=== PATIENT | male | born 1965 | race Caucasian/White ===

== ENCOUNTER 2016-12-08 23:59 | Inpatient (IN) | payer SELFPAY ==
--- NOTE | ~2016-12-08 | DS ---
Discharge Summary [facility] [address] [facility] [place]. [address] NAME: LIBBY MONZON : 69 STATUS : DIS IN PAT#: [id number] AGE: 50 ADM/REG DATE : 12/09/16 MR#: [id number] REPORT SERV DATE: 12/11/16 DICTATED BY: MARIAM PINA DATE: 12/10/16 REPORT STATUS : Draft TRANSCRIBED BY: MODL DATE: 12/10/16 ADMISSION DATE: 12/09/2016 DISCHARGE DATE: 12/10/2016 Date of the patient left AMA is 12/10/2016. DIAGNOSES ON DISCHARGE: Include the following: Bilateral diabetic foot ulcers in both feet. The patient does have a stage III diabetic foot ulcer in the left foot on the sole of the left foot and the patient also has a stage IV to V diabetic foot ulcer on the ball of the big toe of the right foot including first right metatarsal osteomyelitis. Other diagnoses that are chronic in this patient include: 1. Diabetes mellitus type 2 - insulin requiring with diabetic neuropathy. 2. Active tobacco use, which has probably contributed to the diabetic foot ulcer. 3. Homelessness. 4. History of chronic osteomyelitis in the right great toe and the right first metatarsophalangeal joint. BRIEF HOSPITAL COURSE: The patient is a 50-year-old gentleman who was admitted to the hospital on 12/09/2016 with infected diabetic foot ulcers in both feet. Wound cultures were obtained and the patient was promptly started on antibiotics. X-ray of the foot that was obtained showed that the patient did have osteomyelitis of the right first MTP joint and metatarsal area. The patient was given supportive care with pain control and also wound dressing was done. The patient also underwent bilateral arterial Doppler/ALEXI to assess for circulation in both lower extremities. 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 We consulted Vascular Surgery and also consulted General Surgery for possible wound debridement in this patient while we were trying to get Infectious Disease doctors to consult and suggest the length and the type of antibiotics in this patient. Wound cultures are also pending at this time. As he was talking to one of the surgeons regarding his tobacco use, the patient suddenly got extremely upset and decided to leave against medical advice. I went inside the patient's exam room and tried to talk him into staying and explained to him the risks of him signing out AMA. The patient even refused prescription for antibiotics, he said that he got this, he could take care of himself and was extremely agitated, almost violent, and signed out AMA at this time. The patient did not want or refused a prescription for even antibiotics "I got this, I am an adult, and I can make decisions on my own" and the patient is being signed out AMA. So far the results I have on this patient include the following, CBC on 12/10/2016 shows WBC count of 5, hemoglobin 10.4, hematocrit 32.2, and platelet count is 362. His wound cultures at this time as mentioned above, they just are back, and it does show that GPC to be identified and moderate growth of gram-negative bacilli to be identified at this time. Hence even though we have an approximate idea about what this is growing, the definitive cultures are pending. Discharge Summary [address] [address] NAME: LIBBY MONZON : 69 STATUS : DIS IN PAT#: [id number] AGE: 50 ADM/REG DATE : 12/09/16 MR#: [id number] REPORT SERV DATE: 12/11/16 DICTATED BY: MARIAM PINA DATE: 12/10/16 REPORT STATUS : Draft TRANSCRIBED BY: CALIXTO DATE: 12/10/16 His sedimentation rate has come back elevated at 77. His electrolyte profile shows normal electrolytes, normal BUN and creatinine. Glycohemoglobin or hemoglobin A1c is 7.5, reflecting fairly good control of his diabetes mellitus. So, at this time, he states that he has enough medications and refuses any more antibiotics and has signed out AMA. I have spent about 35 minutes in coordinating discharge care of this patient including face- to-face encounter, talking to the patient and reviewing test results and dictating this summary. DICTATED BY: Edelmira Asher/CALIXTO Mariam Pina M.D. / [id number] CC: Mariam Pina M.D.
--- NOTE | ~2016-12-08 | HP ---
History And Physical [place] [address] [place]. [address] NAME: LIBBY MONZON : 69 STATUS : ADM IN PAT#: [id number] AGE: 50 ADM/REG DATE : 12/09/16 MR#: [id number] REPORT SERV DATE: 12/09/16 DICTATED BY: MORIS BENEDICT DATE: 12/09/16 REPORT STATUS : Draft TRANSCRIBED BY: MODNickolas DATE: 12/09/16 DATE OF ADMISSION: 12/08/2016 POINT OF ENTRY: [facility]. PRIMARY CARE PHYSICIAN: None at this time. CHIEF COMPLAINT: Bilateral foot pain. HISTORY OF PRESENT ILLNESS: Mr. Monzon is a 50-year-old gentleman with a history of non- insulin-dependent diabetes mellitus type 2 with associated diabetic neuropathy as well as prior history of right great toe and 5th toe diabetic foot infections with osteomyelitis, who presents to the emergency department today with reports of week long history of bilateral foot pain and infection. The patient was admitted to the Hospitalist Service in July of this year for right great toe and 5th toe diabetic foot infection with osteomyelitis. He underwent surgical debridement by Dr. Bridges. At that time amputation was recommended, but he declined. The Hospitalist Service arranged for the patient to have a prolonged course of outpatient IV antibiotic infusions with daptomycin with then conversion to oral Zyvox; however, the patient states that shortly after discharge he was arrested and placed in longterm, and was unable to complete the course of antibiotic treatment. The patient states he was recently released from his longterm six days ago. States that upon discharge from longterm his feet were doing well, they had healed up. There was no drainage, skin breakdown, redness or pain. He states that he was at [facility] about four days ago for bilateral foot pain with signs of swelling, redness, and concern for infection. He states that he was there for about two days and claims that he was not given any antibiotics at that time. The patient denies any fevers, night sweats, or chills. He states that his skin breakdown of his feet, the swelling, and redness has continued to worsen over the last few days findings on presentation to the emergency department. Initial evaluation in the emergency department was notable for labs that are unremarkable except for a blood sugar of 258. He has stable vital signs. He was subsequently admitted to the Hospitalist Service for further evaluation and management. REVIEW OF SYSTEMS: Comprehensive review of system otherwise negative unless listed in history of present illness. PREVIOUS MEDICAL HISTORY: 1. Agv-oppydbn-ovqezgosu diabetes mellitus type 2 with diabetic neuropathy. 2. Chronic pain. 3. Active tobacco abuse. 4. Homelessness. 5. History of right great toe and 5th toe diabetic foot infection and osteomyelitis. History And Physical [address] [address] NAME: LIBBY MONZON : 69 STATUS : ADM IN PAT#: [id number] AGE: 50 ADM/REG DATE : 12/09/16 MR#: [id number] REPORT SERV DATE: 12/09/16 DICTATED BY: MORIS BENEDICT DATE: 12/09/16 REPORT STATUS : Draft TRANSCRIBED BY: CALIXTO DATE: 12/09/16 6. History of nephrolithiasis. SURGICAL HISTORY: Surgical debridement of right great toe and 5th toe. ALLERGIES: TO MORPHINE. HOME MEDICATIONS: None. SOCIAL HISTORY: He smokes about a half pack per day. Denies alcohol. Denies illicits. FAMILY MEDICAL HISTORY: Mother with cancer. Extensive family history of coronary artery disease. LABS AND IMAGIN. White count is 7.4, hemoglobin is 10.7, hematocrit is 31.9, and platelets 349. 2. Sodium is 137, potassium is 3.7, chloride is 103, carbon dioxide 28, BUN 15, creatinine 0.93, glucose is 258, calcium is 8.7, protein is 7.0, albumin is 3.1, bilirubin is 0.6, ALT 23, AST 14, and alkaline phosphatase is 86. 3. Plain films of the bilateral feet are pending at the time of dictation. PHYSICAL EXAMINATION: VITAL SIGNS: Temperature is 98.4 degrees Fahrenheit, pulse is 105, respirations 20, saturating 98% on room air, and blood pressure is 119/83. GENERAL: The patient is awake, alert, in no acute distress. Resting comfortably in bed. He is a disheveled and unkempt appearing male. HEENT: Atraumatic and normocephalic. Moist mucous membranes. Pupils are equal, round, reactive to light and accommodation. Extraocular eye movements intact. No scleral icterus. NECK: No jugular venous distention. No carotid bruits. CARDIAC: Regular rate and rhythm. No murmurs or gallops. Normal S1, normal S2. LUNGS: Clear to auscultation bilaterally. No wheezes, rhonchi, or crackles. ABDOMEN: Soft, nontender, and nondistended. Good bowel sounds. No rebound, guarding, or rigidity. EXTREMITIES: Warm. The left lower extremity has some edema and erythema encompassing the forefoot and midfoot region. He has a chronic appearing ulceration on the distal aspect of the left great toe. The right lower extremity also shows some swelling, erythema, and warmth of the forefoot and midfoot region. The patient also has ulceration on the distal aspect of the great toe as well as ulceration with skin breakdown over the metatarsal head region of the right great toe. SKIN: Warm and dry except for noted above. PSYCH: Affect appropriate. NEURO: Alert and oriented x3. Cranial nerves 2 through 12 grossly intact. Speech is normal. Gait not assessed. ASSESSMENT AND PLAN: Mr. Monzon is a 50-year-old gentleman with a history of diabetes with a previous history of right diabetic foot infection, osteomyelitis, who presents to the emergency department today with bilateral foot pain and evidence of infection. History And Physical [address] [address] NAME: LIBBY MONZON : 69 STATUS : ADM IN [facility]#: [id number] AGE: 50 ADM/REG DATE : 12/09/16 MR#: [id number] REPORT SERV DATE: 12/09/16 DICTATED BY: MORIS BENEDICT DATE: 12/09/16 REPORT STATUS : Draft TRANSCRIBED BY: CALIXTO DATE: 12/09/16 PROBLEM LIST: 1. Bilateral lower extremity diabetic foot infection with concern for osteomyelitis. 2. Uhw-ctcsalm-drhusetzt diabetes mellitus type 2. 3. Active tobacco abuse. 4. Medication noncompliance. 5. Homelessness. PLAN: 1. Bilateral lower extremity diabetic foot infection with concern for osteomyelitis. We will admit the patient to the Hospitalist Service. Blood culture already had been obtained. We will try to obtain wound cultures. We will place the patient empirically on broad-spectrum antibiotics of IV vancomycin as well as Zosyn to cover known prior culture data of MSSA as well as Pseudomonas. We will consult Orthopedic Surgery, Dr. Bridges, who has seen the patient in July. Follow up results of plain films. We will defer to Dr. Bridges we will not repeat MRI as indicated at this time, but we will check ESR, CRP for evaluation of possible osteomyelitis. 2. Ytg-tdcvabn-owzcdgoxw diabetes mellitus type 2. The patient's blood sugars are elevated here at 256. Check his hemoglobin A1c. Place him on a level 2 sliding scale. butcher or smallgoods maker consultation. 3. DVT prophylaxis. Lovenox subcu. CODE STATUS: The patient wished to be full code. JCB/MODL Moris Benedict MD / [id number]
[~2016-12-08 23:59] MED LIST: *UNABLE1; ADVIL PO; ALEVE220 MG PO; AUG875 PO; CIP5 PO; GLUCOTROL5 PO; GLUCPH PO; IBU800 PO; NORCO1 TA1 PO; NOVOLOG SC; NOVOLOGMIX; [UNRECOGNIZED DRUG - REMARK]
[2016-12-09 00:21] LABS: BASOPHILS 0.3 %; BASOPHILS ABSOLUTE 0.02 10/3/uL (0.0-0.16); EOSINOPHILS 3.2 %; EOSINOPHILS ABSOLUTE 0.24 10/3/uL (0.0-0.53); ER CBC TAT 0 Hrs 03 Mins; HEMOGLOBIN 10.7 g/dL (13.6-17.8); IMMATURE GRANULOCYTES 0.1 %; IMMATURE GRANULOCYTES ABSOLUTE 0.01 10/3/uL (0.0-0.11); LYMPHOCYTES 14.6 %; LYMPHOCYTES ABSOLUTE 1.08 10/3/uL (0.67-4.30); MEAN CORPUS HGB CONC 33.5 g/dL (32.0-36.0); MEAN CORPUSCULAR HEMOGLOB 30.1 pg (26.0-34.0); MEAN CORPUSCULAR VOLUME 89.9 fL (80-100); MEAN PLATELET VOLUME 8.3 fL (9.2-13.0); MONOCYTES 11.5 %; MONOCYTES ABSOLUTE 0.85 10/3/uL (0.21-1.20); NEUTROPHILS 70.3 %; NEUTROPHILS ABSOLUTE 5.19 10/3/uL (2.02-8.40); PLATELET COUNT 340 10/3/uL (150-400); RBC DISTRIBUTION WIDTH 13.2 % (12.0-16.0); RED CELL COUNT 3.55 10/6/uL (4.7-6.1); WHITE BLOOD CELLS 7.4 10/3/uL (4.5-10.5)
[2016-12-09 00:31] LABS: HEMATOCRIT 31.9 % (40.0-51.0); MANUAL DIFF NO %
[2016-12-09 00:37] LABS: A/G RATIO 0.7 (0.7-1.9); ALBUMIN 3.1 G/DL (3.5-5.0); ALKALINE PHOSPHATASE 86 U/L (45-117); BUN (BLOOD UREA NITROGEN) 15 MG/DL (6-23); CALCIUM, SERUM 8.7 MG/DL (8.5-10.4); CHLORIDE, SERUM 103 MMOL/L (96-112); CO2 (CARBON DIOXIDE) 28 MMOL/L (24-34); CREATININE 0.93 MG/DL (0.70-1.30); GFR AFRICAN AMERICAN 112 ML/MIN (>=60); GFR NON AFRICAN AMERICAN 97 ML/MIN (>=60); GLOBULIN 4.5 G/DL (2.5-4.1); GLUCOSE, SERUM 258 MG/DL (60-99); POTASSIUM, SERUM 3.7 MMOL/L (3.5-5.3); SGOT(AST) 14 U/L (5-40); SGPT(ALT) 23 U/L (5-65); SODIUM, SERUM 137 MMOL/L (135-148); TOTAL BILIRUBIN 0.6 MG/DL (0-1.2); TOTAL PROTEIN 7.6 G/DL (6.0-8.5)
[2016-12-09 05:37] LABS: PROCALCITONIN 0.08 ng/mL (<0.5)
[2016-12-10 06:01] LABS: BUN (BLOOD UREA NITROGEN) 10 MG/DL (6-23); CALCIUM, SERUM 8.2 MG/DL (8.5-10.4); CHLORIDE, SERUM 107 MMOL/L (96-112); CO2 (CARBON DIOXIDE) 28 MMOL/L (24-34); CREATININE 0.79 MG/DL (0.70-1.30); GFR AFRICAN AMERICAN 123 ML/MIN (>=60); GFR NON AFRICAN AMERICAN 106 ML/MIN (>=60); GLUCOSE, SERUM 125 MG/DL (60-99); POTASSIUM, SERUM 4.3 MMOL/L (3.5-5.3); SODIUM, SERUM 138 MMOL/L (135-148)
[2016-12-10 06:53] LABS: BASOPHILS 0.6 %; BASOPHILS ABSOLUTE 0.03 10/3/uL (0.0-0.16); EOSINOPHILS 8.9 %; EOSINOPHILS ABSOLUTE 0.44 10/3/uL (0.0-0.53); HEMATOCRIT 32.2 % (40.0-51.0); HEMOGLOBIN 10.4 g/dL (13.6-17.8); IMMATURE GRANULOCYTES 0.4 %; IMMATURE GRANULOCYTES ABSOLUTE 0.02 10/3/uL (0.0-0.11); LYMPHOCYTES ABSOLUTE 1.94 10/3/uL (0.67-4.30); MANUAL DIFF NO %; MEAN CORPUS HGB CONC 32.3 g/dL (32.0-36.0); MEAN CORPUSCULAR HEMOGLOB 29.6 pg (26.0-34.0); MEAN CORPUSCULAR VOLUME 91.7 fL (80-100); MEAN PLATELET VOLUME 8.5 fL (9.2-13.0); MONOCYTES 9.3 %; MONOCYTES ABSOLUTE 0.46 10/3/uL (0.21-1.20); NEUTROPHILS 41.8 %; NEUTROPHILS ABSOLUTE 2.08 10/3/uL (2.02-8.40); PLATELET COUNT 362 10/3/uL (150-400); RBC DISTRIBUTION WIDTH 13.3 % (12.0-16.0); RED CELL COUNT 3.51 10/6/uL (4.7-6.1)
== END 2016-12-10 13:06 | disposition left against medical advice (07) | DRG 74 ==
LOC: ER 23:59 → 5SO 12-09 02:54
PROVIDERS: Emergency Medicine; Internal Medicine
DX: E11.40 Type 2 diabetes mellitus with diabetic neuropathy, unspecified (principal); E11.65 Type 2 diabetes mellitus with hyperglycemia; M86.8X7 Other osteomyelitis, ankle and foot; G89.29 Other chronic pain; F17.210 Nicotine dependence, cigarettes, uncomplicated; Z59.0 Homelessness; Z87.442 Personal history of urinary calculi; Z98.890 Other specified postprocedural states; Z88.5 Allergy status to narcotic agent; Z91.14 Patient's other noncompliance with medication regimen
CPT/HCPCS: 73630-50; 80048; 80053; 82962; 83036; 84145; 85025; 85652; 86140; 87070; 87077; 87186; 87205; 93923; 99284; A9270-GY; J1170; J2543; J3370

== ENCOUNTER 2016-12-29 23:00 | Emergency (ER) | payer SELFPAY ==
[2016-12-30 00:20] LABS: BASOPHILS 0.4 %; BASOPHILS ABSOLUTE 0.03 10/3/uL (0.0-0.16); EOSINOPHILS 7.6 %; EOSINOPHILS ABSOLUTE 0.53 10/3/uL (0.0-0.53); ER CBC TAT 0 Hrs 05 Mins; HEMATOCRIT 35.2 % (40.0-51.0); HEMOGLOBIN 11.6 g/dL (13.6-17.8); IMMATURE GRANULOCYTES 0.1 %; IMMATURE GRANULOCYTES ABSOLUTE 0.01 10/3/uL (0.0-0.11); LYMPHOCYTES ABSOLUTE 2.37 10/3/uL (0.67-4.30); MEAN CORPUSCULAR HEMOGLOB 29.9 pg (26.0-34.0); MEAN CORPUSCULAR VOLUME 90.7 fL (80-100); MEAN PLATELET VOLUME 8.9 fL (9.2-13.0); MONOCYTES 7.6 %; MONOCYTES ABSOLUTE 0.53 10/3/uL (0.21-1.20); NEUTROPHILS 50.3 %; NEUTROPHILS ABSOLUTE 3.51 10/3/uL (2.02-8.40); PLATELET COUNT 272 10/3/uL (150-400); RBC DISTRIBUTION WIDTH 13.7 % (12.0-16.0); RED CELL COUNT 3.88 10/6/uL (4.7-6.1)
[2016-12-30 00:22] LABS: MANUAL DIFF NO %
[2016-12-30 00:34] LABS: ACETONE NEG
[2016-12-30 00:40] LABS: LACTATE 1.1 MMOL/L (0.3-2.4)
[2016-12-30 00:43] LABS: A/G RATIO 0.9 (0.7-1.9); ALBUMIN 3.4 G/DL (3.5-5.0); ALKALINE PHOSPHATASE 93 U/L (45-117); BUN (BLOOD UREA NITROGEN) 21 MG/DL (6-23); CALCIUM, SERUM 8.5 MG/DL (8.5-10.4); CHLORIDE, SERUM 102 MMOL/L (96-112); CO2 (CARBON DIOXIDE) 30 MMOL/L (24-34); CREATININE 1.25 MG/DL (0.70-1.30); GFR AFRICAN AMERICAN 78 ML/MIN (>=60); GFR NON AFRICAN AMERICAN 68 ML/MIN (>=60); GLOBULIN 3.9 G/DL (2.5-4.1); GLUCOSE, SERUM 115 MG/DL (60-99); POTASSIUM, SERUM 4.2 MMOL/L (3.5-5.3); SGOT(AST) 10 U/L (5-40); SGPT(ALT) 16 U/L (5-65); SODIUM, SERUM 136 MMOL/L (135-148); TOTAL BILIRUBIN 0.4 MG/DL (0-1.2); TOTAL PROTEIN 7.3 G/DL (6.0-8.5)
== END 2016-12-30 02:08 | disposition left against medical advice (07) ==
LOC: ER 23:00
PROVIDERS: Specialist
DX: E11.621 Type 2 diabetes mellitus with foot ulcer (principal); L97.529 Non-pressure chronic ulcer of other part of left foot with unspecified severity; L97.519 Non-pressure chronic ulcer of other part of right foot with unspecified severity; E11.69 Type 2 diabetes mellitus with other specified complication; M86.671 Other chronic osteomyelitis, right ankle and foot; F17.200 Nicotine dependence, unspecified, uncomplicated; Z88.5 Allergy status to narcotic agent; Z88.8 Allergy status to other drugs, medicaments and biological substances
CPT/HCPCS: 73630-LT; 73630-RT; 80053; 82009; 82962; 83605; 85025; 87040; 99283

== ENCOUNTER 2016-12-30 16:11 | Emergency (ER) | payer SELFPAY ==
[2016-12-30 19:01] LABS: BASOPHILS 0.8 %; BASOPHILS ABSOLUTE 0.06 10/3/uL (0.0-0.16); EOSINOPHILS 9.3 %; EOSINOPHILS ABSOLUTE 0.68 10/3/uL (0.0-0.53); ER CBC TAT 0 Hrs 09 Mins; HEMATOCRIT 34.2 % (40.0-51.0); HEMOGLOBIN 11.2 g/dL (13.6-17.8); IMMATURE GRANULOCYTES 0.1 %; IMMATURE GRANULOCYTES ABSOLUTE 0.01 10/3/uL (0.0-0.11); LYMPHOCYTES 22.1 %; LYMPHOCYTES ABSOLUTE 1.62 10/3/uL (0.67-4.30); MEAN CORPUS HGB CONC 32.7 g/dL (32.0-36.0); MEAN CORPUSCULAR HEMOGLOB 29.9 pg (26.0-34.0); MEAN CORPUSCULAR VOLUME 91.2 fL (80-100); MONOCYTES 7.1 %; MONOCYTES ABSOLUTE 0.52 10/3/uL (0.21-1.20); NEUTROPHILS 60.6 %; NEUTROPHILS ABSOLUTE 4.45 10/3/uL (2.02-8.40); PLATELET COUNT 263 10/3/uL (150-400); RED CELL COUNT 3.75 10/6/uL (4.7-6.1); WHITE BLOOD CELLS 7.3 10/3/uL (4.5-10.5)
[2016-12-30 19:06] LABS: MANUAL DIFF NO %
[2016-12-30 19:18] LABS: A/G RATIO 0.9 (0.7-1.9); ALBUMIN 3.2 G/DL (3.5-5.0); ALKALINE PHOSPHATASE 99 U/L (45-117); BUN (BLOOD UREA NITROGEN) 19 MG/DL (6-23); CALCIUM, SERUM 8.2 MG/DL (8.5-10.4); CHLORIDE, SERUM 106 MMOL/L (96-112); CO2 (CARBON DIOXIDE) 30 MMOL/L (24-34); CREATININE 0.87 MG/DL (0.70-1.30); GFR AFRICAN AMERICAN 117 ML/MIN (>=60); GFR NON AFRICAN AMERICAN 101 ML/MIN (>=60); GLOBULIN 3.7 G/DL (2.5-4.1); GLUCOSE, SERUM 130 MG/DL (60-99); POTASSIUM, SERUM 4.3 MMOL/L (3.5-5.3); SGOT(AST) 13 U/L (5-40); SGPT(ALT) 14 U/L (5-65); SODIUM, SERUM 140 MMOL/L (135-148); TOTAL BILIRUBIN 0.3 MG/DL (0-1.2); TOTAL PROTEIN 6.9 G/DL (6.0-8.5)
[2016-12-30 19:20] LABS: LACTATE 1.1 MMOL/L (0.3-2.4)
== END 2016-12-30 20:55 | disposition left against medical advice (07) ==
LOC: ER 16:11
PROVIDERS: Physician Assistant
DX: M86.9 Osteomyelitis, unspecified (principal); E11.65 Type 2 diabetes mellitus with hyperglycemia; F17.210 Nicotine dependence, cigarettes, uncomplicated; Z88.5 Allergy status to narcotic agent; Z91.048 Other nonmedicinal substance allergy status
CPT/HCPCS: 73130-RT; 73660-LT; 80053; 83605; 85025; 87040; 96374; 99284; A9270-GY; J1885; J3370